=== PATIENT | female | born 1965 | race Caucasian/White ===

== ENCOUNTER 2016-03-06 13:53 | Emergency (ER) | payer BC, MEDICAID ==
[~2016-03-06] VITALS: Ht 162.6 cm; Wt 63.0 kg
[2016-03-06 13:57] VITALS: Ht 162.6 cm; Wt 63.0 kg
[2016-03-06] MEDS ORDERED: PRED20TA PO (14:34)
[2016-03-06] MEDS ORDERED: AZIT250T94 PO (14:34)
--- NOTE | 2016-03-06 14:40 | ERD ---
ER Documentation Chief Complaint Date/Time DATE: 03/06/16 TIME: 14:38 Chief Complaint right ear pain x 20 days; cant hear from right ear HPI This 50-year-old female presents with right ear congestion and decreased hearing for the last 3 weeks. She had some right ear barotrauma 3 weeks ago and was diagnosed with a small perforation. She is here because she is having continued difficulty hearing out of that ear and sensation of congestion. She has minimal pain. She has additional cough, congestion as well. She denies fevers, active bleeding or discharge. ROS All systems reviewed and are negative except as per history of present illness. Medications Home Meds Active Scripts Prednisone* (Prednisone*) 20 Mg Tab, 40 MG PO DAILY for 4 Days, TAB Prov:PARVEEN NEGRETE MD 03/06/16 Azithromycin* (Zithromax*) 250 Mg Tablet, 250 MG PO .ZPACK DIRECTED, #6 TAB TAKE 500 MG (2 TABS) THE FIRST DAY THEN 250 MG (1 TAB) DAYS 2-5 Prov:PARVEEN NEGRETE MD 03/06/16 Allergies Allergies: Coded Allergies: No Known Drug Allergies (Verified Allergy, 04/22/13) PMhx/Soc History of Surgery: No Anesthesia Reaction: No Hx Neurological Disorder: No Hx Respiratory Disorders: No Hx Cardiac Disorders: No Hx Psychiatric Problems: No Hx Miscellaneous Medical Probl: No Hx Alcohol Use: No Hx Substance Use: No Hx Tobacco Use: No Physical Exam Vitals Vital Signs Date Time Temp Pulse Resp B/P Pulse Ox O2 Delivery O2 Flow Rate FiO2 03/06/16 13:57 98.5 64 18 136/72 95 Physical Exam Const: [] Alert, [id number]. Head: Atraumatic Eyes: Normal Conjunctiva ENT: Normal External Ears, Nose and Mouth. Right TM shows some redness with decreased light reflex. There is no visualized perforation. There is no mastoid tenderness. Neck: Full range of motion..~ No meningismus. Resp: Clear to auscultation bilaterally Cardio: Regular rate and rhythm, no murmurs Abd: Soft, non tender, non distended. Normal bowel sounds Skin: No petechiae or rashes Back: No midline or flank tenderness Ext: No cyanosis, or edema Neur: Awake and alert Psych: Normal Mood and Affect Procedures/MDM Patient presents with signs and symptoms of right otitis media which appears serous. There is no visualized perforation which appears to have healed. Patient appears to have eustachian tube dysfunction. She will be treated with short course of prednisone and Zithromax instructions to follow-up with ENT. She will referred to local ENT but was advised may need authorization from her primary care doctor. The patient was stable with no new complaints during the ER course. Clinically, there is no current evidence to suggest meningitis, sepsis, acute abdomen, pneumonia, acute coronary syndrome, pulmonary embolism, or any other emergent condition appearing to require further evaluation or hospitalization. The patient should certainly return for any new or worsening symptoms per the aftercare instructions. They should otherwise follow-up with her primary care doctor for reevaluation this week. Departure Diagnosis: Primary Impression: Right ear pain Condition: Stable Patient Instructions: Otitis Media, Abx Tx (Adult), Eustachian Tube Obstruction (Child) Referrals: DAIANA TEJEDA MD,MAT Laureano MD Additional Instructions: Va al ley doctor/ specialista para mas evaluacon en el proximo semana. posiblemente necesita autorizado de ley doctor primario para specialista. Regresa para fiebre, o mas o nueva simptomas. PARVEEN NEGRETE MD Mar 06, 2016 14:40
== END 2016-03-06 15:25 | disposition home or self-care (01) ==
LOC: FTE 13:53
DX: H92.01 Otalgia, right ear (principal)
CPT/HCPCS: 99284